=== PATIENT | female | born 1995 | race Caucasian/White ===

== ENCOUNTER 2017-06-05 13:46 | Observation (INO) | payer OTHER ==
[~2017-06-05 13:46] MED LIST: NORE1TAB60 PO
[2017-06-05] MEDS ORDERED: BUTA1CAP PO (14:42)
[2017-06-05] MEDS ORDERED: NAPR500 PO (14:42)
[2017-06-05] MEDS ORDERED: SODIUM CHLOR 0.9% 1000 ML INJ 1,000 ML IV ONE (15:00)
[2017-06-05] MEDS ORDERED: SODIUM CHLORIDE 0.9% FLUSH 10 ML FLUSH IVF PRN (15:00)
[2017-06-05] MEDS ORDERED: ONDANSETRON HCL 4 MG/2 ML VIAL IV PUSH ONE (15:00)
--- NOTE | 2017-06-05 15:01 | PD ---
HPI Chief Complaint: OD/ Ingestion Time Seen by Provider: 14:58 Travel History International Travel<30 days: No Contact w/Intl Traveler<30days: No Traveled to known affect area: No History of Present Illness HPI 22-year-old female with history of migraine headaches, presents to the ER today because she states that she had taken 4 tablets of Naprosyn at 12:30 and then took 4 tablets of Fioricet and 1:30, started becoming nauseous and started vomiting and became lightheaded. She states that at that point she decided to come in. She says her headache is actually improved. She denies any fevers, blood in the vomitus, and denies any other issues. Modifying Factors: None Associated Signs & Symptoms: Accidental overdose of Fioricet and Naprosyn Risk Factors: None PFSH Past Medical History Medical History: Denies Significant Hx ADHD: Yes (ADHD,BIPOLAR,ODD,SCHIZOPHRENIC "when I was a kid") Asthma: Yes Bipolar Disorder: Yes ("when I was a kid") Depression: Yes ("when I was a kid") Cancer: No Cardiovascular Problems: No Diabetes: No Diminished Hearing: No Psychiatric: Yes (ADHD,BIPOLAR,ODD,SCHIZOPHRENIC "when I was a kid") Immunizations Current: Yes Migraines: Yes Seizures: No Thyroid Disease: No Ulcer: No Influenza Vaccination: No ?: Not LMP: april 22 2017 Menopausal: No : 0 Miscarriage: 1 Past Surgical History Surgical History: No Previous Surgery Appendectomy: No Cholecystectomy: No Other Surgery: Yes (TONSILS AND ADNOIDS) Social History Alcohol Use: Yes (social drinker, last use 2 weeks ago) Tobacco Use: No (NOW AND THEN) Substance Use: Yes (CIGARETTES AND POT) Allergies-Medications (Allergen,Severity, Reaction): Coded Allergies: lamotrigine (Unverified Allergy, Severe, Hives, 06/05/17) penicillin G (Unverified Allergy, Severe, 06/05/17) levofloxacin (Unverified Allergy, Intermediate, 06/05/17) Reported Meds & Prescriptions Reported Meds & Active Scripts Active Reported Naprosyn (Naproxen) 500 Mg Tab 500 Mg PO BID Fioricet (Oirfdmamps-Xdhsefbvbelcx-Mecdotcg) 50-300-40 Mg Cap 1 Cap PO Q4H PRN Review of Systems Except as stated in HPI: all other systems reviewed are Neg Physical Exam Narrative GENERAL: Well-developed young white female patient currently in mild distress. Awake, alert, oriented 3. SKIN: Focused skin assessment warm/dry. HEAD: Atraumatic. Normocephalic. EYES: Pupils equal and round. No scleral icterus. No injection or drainage. ENT: No nasal bleeding or discharge. Mucous membranes pink and moist. NECK: Trachea midline. No JVD. CARDIOVASCULAR: Regular rate and rhythm. No murmur appreciated. RESPIRATORY: No accessory muscle use. Clear to auscultation. Breath sounds equal bilaterally. GASTROINTESTINAL: Abdomen soft, non-tender, nondistended. Hepatic and splenic margins not palpable. MUSCULOSKELETAL: No obvious deformities. No clubbing. No cyanosis. No edema. NEUROLOGICAL: Awake and alert. No obvious cranial nerve deficits. Motor grossly within normal limits. Normal speech. PSYCHIATRIC: Appropriate mood and affect; insight and judgment normal. Data Data Last Documented VS Vital Signs Date Time Temp Pulse Resp B/P (MAP) Pulse Ox O2 Delivery O2 Flow Rate FiO2 06/05/17 17:19 66 18 113/44 (67) 99 Room Air Orders Orders Complete Blood Count With Diff (06/05/17 14:48) Comprehensive Metabolic Panel (06/05/17 14:48) Iv Access Insert/Monitor (06/05/17 14:48) Ecg Monitoring (06/05/17 14:48) Oximetry (06/05/17 14:48) Sodium Chloride 0.9% Flush (Ns Flush) (06/05/17 15:00) Call Poison Control (06/05/17 14:48) Drug Screen, Random Urine (06/05/17 14:48) Alcohol (Ethanol) (06/05/17 14:48) Salicylates (Aspirin) (06/05/17 14:48) Tylenol (Acetaminophen) (06/05/17 14:48) Sodium Chlor 0.9% 1000 Ml Inj (Ns 1000 M (06/05/17 15:00) Ondansetron Inj (Zofran Inj) (06/05/17 15:00) Labs Laboratory Tests Test 06/05/17 15:20 06/05/17 15:25 Urine Opiates Screen NEG Urine Barbiturates Screen POS Urine Amphetamines Screen NEG Urine Benzodiazepines Screen NEG Urine Cocaine Screen NEG Urine Cannabinoids Screen POS White Blood Count 10.6 TH/MM3 Red Blood Count 4.78 MIL/MM3 Hemoglobin 14.0 GM/DL Hematocrit 41.1 % Mean Corpuscular Volume 86.0 FL Mean Corpuscular Hemoglobin 29.3 PG Mean Corpuscular Hemoglobin Concent 34.1 % Red Cell Distribution Width 12.8 % Platelet Count 287 TH/MM3 Mean Platelet Volume 8.9 FL Neutrophils (%) (Auto) 66.0 % Lymphocytes (%) (Auto) 23.6 % Monocytes (%) (Auto) 7.8 % Eosinophils (%) (Auto) 0.7 % Basophils (%) (Auto) 1.9 % Neutrophils # (Auto) 7.0 TH/MM3 Lymphocytes # (Auto) 2.5 TH/MM3 Monocytes # (Auto) 0.8 TH/MM3 Eosinophils # (Auto) 0.1 TH/MM3 Basophils # (Auto) 0.2 TH/MM3 CBC Comment DIFF FINAL Differential Comment Blood Urea Nitrogen 13 MG/DL Creatinine 0.80 MG/DL Random Glucose 104 MG/DL Total Protein 7.5 GM/DL Albumin 4.4 GM/DL Calcium Level 9.1 MG/DL Alkaline Phosphatase 75 U/L Aspartate Amino Transf (AST/SGOT) 21 U/L Alanine Aminotransferase (ALT/SGPT) 21 U/L Total Bilirubin 1.3 MG/DL Sodium Level 139 MEQ/L Potassium Level 3.7 MEQ/L Chloride Level 108 MEQ/L Carbon Dioxide Level 25.1 MEQ/L Anion Gap 6 MEQ/L Estimat Glomerular Filtration Rate 91 ML/MIN Salicylates Level 2.0 MG/DL Acetaminophen Level 6.0 MCG/ML Ethyl Alcohol Level LESS THAN 6 MG/DL MDM Medical Decision Making Medical Screen Exam Complete: Yes Emergency Medical Condition: Yes Medical Record Reviewed: Yes Interpretation(s) EKG shows NSR, no ST elevation or depression, and no arrhythmias. No significant T-wave inversions. Laboratory Tests Test 06/05/17 15:20 06/05/17 15:25 Urine Barbiturates Screen POS (NEG) Urine Cannabinoids Screen POS (NEG) Total Bilirubin 1.3 MG/DL (0.2-1.0) Chloride Level 108 MEQ/L (98-107) Salicylates Level 2.0 MG/DL (2.8-20.0) Acetaminophen Level 6.0 MCG/ML (10.0-30.0) Ethyl Alcohol Level LESS THAN 6 MG/DL (0-5) Differential Diagnosis Accidental overdose of medications/rule out coingestions Narrative Course Vital signs are stable in the ER. Patient is awake and oriented. Her lab work did not show significant amount of coingestions and calculated dose of Tylenol is under the overdose limited. Case had been discussed with poison control and they had suggested observation in the ER and patient was observed in the ER for several hours. She is feeling improved on reevaluation at 5:45 PM. And at this point, my plan would be to release the patient with follow-up to primary care physician. She should avoid taking prescribed medications be on prescribed doses. Return for any worsening in symptoms as needed. The plan has discussed with her and she states understanding. Diagnosis Primary Impression: Accidental overdose Disposition: 01 DISCHARGE HOME Condition: Stable Cody Dwyer MD Jun 05, 2017 15:01
[2017-06-05 15:40] VITALS: O2SAT 98
[2017-06-05 15:47] VITALS: BP 109/49; PULSE 66; RESP 18; O2SAT 98
[2017-06-05 15:53] LABS: BASOPHIL # 0.2 TH/MM3 (0-0.2); BASOPHIL % 1.9 % (0.0-2.0); CHLORIDE 108 MEQ/L (98-107); EOSINOPHIL # 0.1 TH/MM3 (0-0.4); EOSINOPHIL % 0.7 % (0.0-4.0); HEMATOCRIT 41.1 % (35.0-46.0); HEMO FLAGS DIFF FINAL; LYMPH % 23.6 % (9.0-44.0); LYMPHOCYTE # 2.5 TH/MM3 (1.0-4.8); MEAN CORPUSCULAR HEMOGLOBIN 29.3 PG (27.0-34.0); MEAN CORPUSCULAR HGB CONC 34.1 % (32.0-36.0); MONO % 7.8 % (0.0-8.0); PLATELET COUNT 287 TH/MM3 (150-450); POTASSIUM 3.7 MEQ/L (3.5-5.1); RED BLOOD COUNT 4.78 MIL/MM3 (4.00-5.30); RED CELL DISTRIBUTION WIDTH 12.8 % (11.6-17.2); SODIUM (NA) 139 MEQ/L (136-145); WHITE BLOOD COUNT 10.6 TH/MM3 (4.0-11.0)
[2017-06-05 15:58] LABS: ANION GAP 6 MEQ/L (5-15); BICARBONATE 25.1 MEQ/L (21.0-32.0); BLOOD UREA NITROGEN 13 MG/DL (7-18)
[2017-06-05 16:01] LABS: ALT (GPT) 21 U/L (10-53); AST (GOT) 21 U/L (15-37); GLOMERULAR FILTRATION RATE 91 ML/MIN (>89)
[2017-06-05 16:02] LABS: TOTAL BILIRUBIN ADULT 1.3 MG/DL (0.2-1.0)
[2017-06-05 16:03] LABS: ALKALINE PHOSPHATASE 75 U/L (45-117)
[2017-06-05 16:45] LABS: ALCOHOL LESS THAN 6 MG/DL (0-5)
[2017-06-05 17:19] VITALS: BP 113/44; PULSE 66; RESP 18; O2SAT 99
[2017-06-05] MEDS ORDERED: NALOXONE HCL 0.4 MG/ML AMP IV PRN (18:15)
[2017-06-05] MEDS ORDERED: SODIUM CHLORIDE 0.9% FLUSH 10 ML FLUSH IV FLUSH PRN (18:15)
[2017-06-05 18:45] VITALS: BP 122/66
[2017-06-05 20:27] VITALS: BP 102/58; PULSE 63; RESP 16; TEMP 96.9; O2SAT 96
[2017-06-05] MEDS: SODIUM CHLOR 0.9% 1000 ML INJ 1,000 ML IV SCH (20:30)
[2017-06-05] MEDS: SODIUM CHLORIDE 0.9% FLUSH 10 ML FLUSH IV FLUSH SCH (20:32)
[2017-06-05] MEDS: PANTOPRAZOLE SODIUM 40 MG VIAL IV PUSH SCH (20:32)
[2017-06-05] MEDS: MORPHINE SULFATE 4 MG/ML INJ IV PRN (22:12)
[2017-06-05] MEDS: ONDANSETRON HCL 4 MG/2 ML VIAL IVP PRN (22:12)
[2017-06-06 00:11] VITALS: BP 99/54; PULSE 60; RESP 18; TEMP 97; O2SAT 99
[2017-06-06] MEDS: MORPHINE SULFATE 4 MG/ML INJ IV PRN ×2 (03:05→21:42)
[2017-06-06 04:29] VITALS: RESP 20
[2017-06-06] MEDS: SODIUM CHLOR 0.9% 1000 ML INJ 1,000 ML IV SCH ×3 (04:45→22:54)
[2017-06-06 05:33] LABS: CHLORIDE 112 MEQ/L (98-107); POTASSIUM 4.1 MEQ/L (3.5-5.1); SODIUM (NA) 144 MEQ/L (136-145)
[2017-06-06 05:52] LABS: ALKALINE PHOSPHATASE 62 U/L (45-117); ALT (GPT) 18 U/L (10-53); ANION GAP 6 MEQ/L (5-15); AST (GOT) 15 U/L (15-37); BICARBONATE 26.1 MEQ/L (21.0-32.0); BLOOD UREA NITROGEN 11 MG/DL (7-18); GLOMERULAR FILTRATION RATE 99 ML/MIN (>89); TOTAL BILIRUBIN ADULT 0.7 MG/DL (0.2-1.0)
[2017-06-06 08:00] VITALS: BP 92/52; PULSE 63; RESP 20; TEMP 98.4; O2SAT 100
[2017-06-06] MEDS: SENNOSIDES 8.6 MG TAB PO PRN (08:34)
--- NOTE | 2017-06-06 08:39 | HHI.HP ---
[facility] Primary [facility] Physician No Primary Care Physician Admission Diagnosis accidental overdose Diagnoses: Travel History International Travel<30 Days: No Contact w/Intl Traveler <30 Da: No Traveled to Known Affected Are: No History of Present Illness this is a 22-year-old female with past medical history of migraines who yesterday started to develop a migraine and so she took for naproxen and for Fioricet. She then started to feel nauseated and vomited as well as was dizzy so she presented to the ER. In the ER her Tylenol level was 6. Urine drug screen was positive for marijuana. As she continued to be symptomatic and dizzy, poison control was contacted who recommended that she be observed until her symptoms resolved. This morning the patient is still feeling somewhat dizzy although this is improved. She states that she vomited a small amount around 6 AM. Her headache has resolved. The patient states that she is having mild epigastric abdominal pain. The patient does not feel ready to go home. The patient denied intentional overdose. Review of Systems Constitutional: DENIES: Fatigue, Fever Eyes: DENIES: Blurred vision, Diplopia Ears, nose, mouth, throat: DENIES: Tinnitus, Hearing loss Respiratory: DENIES: Cough, Shortness of breath Cardiovascular: DENIES: Chest pain, Syncope Gastrointestinal: COMPLAINS OF: Nausea, Vomiting, DENIES: Abdominal pain, Bloody stools Genitourinary: DENIES: Urgency, Dysuria Musculoskeletal: DENIES: Joint pain, Muscle aches Neurologic: DENIES: Abnormal gait, Headache, Localized weakness Psychiatric: DENIES: Anxiety, Confusion Past Family Social History Past Medical History Migraines Reported Medications Allergies Coded Allergies Type Severity Reaction Last Updated Verified lamotrigine Allergy Severe Hives 06/05/17 No penicillin G Allergy Severe 06/05/17 No levofloxacin Allergy Intermediate 06/05/17 No Active Scripts Medications Dose Route/Sig Max Daily Dose Days Date Category Naprosyn (Naproxen) 500 Mg Tab 500 Mg PO BID 06/05/17 Reported Fioricet (Hvjkzgsclg-Oqytbnglocqvj-Rrsulkys) 50-300-40 Mg Cap 1 Cap PO Q4H PRN 06/05/17 Reported Allergies: Coded Allergies: lamotrigine (Unverified Allergy, Severe, Hives, 06/05/17) penicillin G (Unverified Allergy, Severe, 06/05/17) levofloxacin (Unverified Allergy, Intermediate, 06/05/17) Family History Her sister also suffers from migraines Social History No tobacco use but she does endorse marijuana use. No other illicit drug use. Physical Exam Vital Signs Vital Signs Date Time Temp Pulse Resp B/P (MAP) Pulse Ox O2 Delivery O2 Flow Rate FiO2 06/06/17 08:00 98.4 63 20 92/52 (65) 100 06/06/17 04:29 20 06/06/17 00:11 97.0 60 18 99/54 (69) 99 06/05/17 20:27 96.9 63 16 102/58 (73) 96 06/05/17 18:45 74 18 122/66 (84) 99 06/05/17 17:19 66 18 113/44 (67) 99 Room Air 06/05/17 15:47 66 18 109/49 (69) 98 06/05/17 15:40 98 Room Air Physical Exam GENERAL: Well-nourished, well-developed pleasant female patient. SKIN: Warm and dry. HEAD: Normocephalic. EYES: No scleral icterus. No injection or drainage. NECK: Supple, trachea midline. No JVD or lymphadenopathy. CARDIOVASCULAR: Regular rate and rhythm without murmurs, gallops, or rubs. RESPIRATORY: Breath sounds equal bilaterally. No accessory muscle use. GASTROINTESTINAL: Abdomen soft, non-tender, nondistended. EXTREMITIES: No cyanosis, or edema. NEUROLOGICAL: Awake, alert, and oriented x 3. Non-focal. Laboratory Laboratory Tests Test 06/05/17 15:20 06/05/17 15:25 06/06/17 05:00 Urine Opiates Screen NEG Urine Barbiturates Screen POS Urine Amphetamines Screen NEG Urine Benzodiazepines Screen NEG Urine Cocaine Screen NEG Urine Cannabinoids Screen POS White Blood Count 10.6 Red Blood Count 4.78 Hemoglobin 14.0 Hematocrit 41.1 Mean Corpuscular Volume 86.0 Mean Corpuscular Hemoglobin 29.3 Mean Corpuscular Hemoglobin Concent 34.1 Red Cell Distribution Width 12.8 Platelet Count 287 Mean Platelet Volume 8.9 Neutrophils (%) (Auto) 66.0 Lymphocytes (%) (Auto) 23.6 Monocytes (%) (Auto) 7.8 Eosinophils (%) (Auto) 0.7 Basophils (%) (Auto) 1.9 Neutrophils # (Auto) 7.0 Lymphocytes # (Auto) 2.5 Monocytes # (Auto) 0.8 Eosinophils # (Auto) 0.1 Basophils # (Auto) 0.2 CBC Comment DIFF FINAL Differential Comment Blood Urea Nitrogen 13 11 Creatinine 0.80 0.74 Random Glucose 104 96 Total Protein 7.5 6.3 Albumin 4.4 3.3 Calcium Level 9.1 7.9 Alkaline Phosphatase 75 62 Aspartate Amino Transf (AST/SGOT) 21 15 Alanine Aminotransferase (ALT/SGPT) 21 18 Total Bilirubin 1.3 0.7 Sodium Level 139 144 Potassium Level 3.7 4.1 Chloride Level 108 112 Carbon Dioxide Level 25.1 26.1 Anion Gap 6 6 Estimat Glomerular Filtration Rate 91 99 Salicylates Level 2.0 Acetaminophen Level 6.0 Ethyl Alcohol Level LESS THAN 6 Result Diagram: 06/05/17 1525 06/06/17 0500 Caprini VTE Risk Assessment Caprini VTE Risk Assessment: No/Low Risk (score <= 1) Caprini Risk Assessment Model Point Value = 1 Point Value = 2 Point Value = 3 Point Value = 5 Age 41-60 Minor surgery BMI > 25 kg/m2 Swollen legs Varicose veins or History of unexplained or recurrent spontaneous Oral contraceptives or hormone replacement Sepsis (< 1 month) Serious lung disease, including pneumonia (< 1 month) Abnormal pulmonary function Acute myocardial infarction Congestive heart failure (< 1 month) History of inflammatory bowel disease Medical patient at bed rest Age 61-74 Arthroscopic surgery Major open surgery (> 45 min) Laparoscopic surgery (> 45 min) Malignancy Confined to bed (> 72 hours) Immobilizing plaster cast Central venous access Age >= 75 History of VTE Family history of VTE Factor V Leiden Prothrombin [id number] Lupus anticoagulant Anticardiolipin antibodies Elevated serum homocysteine Heparin-induced thrombocytopenia Other congenital or acquired thrombophilia Stroke (< 1 month) Elective arthroplasty Hip, pelvis, or leg fracture Acute spinal cord injury (< 1 month) Prophylaxis Regimen Total Risk Factor Score Risk Level Prophylaxis Regimen 0-1 Low Early ambulation 2 Moderate Order ONE of the following: *Sequential Compression Device (SCD) *Heparin 5000 units SQ BID 3-4 Higher Order ONE of the following medications: *Heparin 5000 units SQ TID *Enoxaparin/Lovenox 40 mg SQ daily (WT < 150 kg, CrCl > 30 mL/min) *Enoxaparin/Lovenox 30 mg SQ daily (WT < 150 kg, CrCl > 10-29 mL/min) *Enoxaparin/Lovenox 30 mg SQ BID (WT < 150 kg, CrCl > 30 mL/min) AND/OR *Sequential Compression Device (SCD) 5 or more Highest Order ONE of the following medications: *Heparin 5000 units SQ TID (Preferred with Epidurals) *Enoxaparin/Lovenox 40 mg SQ daily (WT < 150 kg, CrCl > 30 mL/min) *Enoxaparin/Lovenox 30 mg SQ daily (WT < 150 kg, CrCl > 10-29 mL/min) *Enoxaparin/Lovenox 30 mg SQ BID (WT < 150 kg, CrCl > 30 mL/min) AND *Sequential Compression Device (SCD) Assessment and Plan Problem List: (1) Accidental overdose ICD Code: T50.901A - Poisoning by unspecified drugs, medicaments and biological substances, accidental (unintentional), initial encounter Status: Acute Assessment and Plan -Accidental overdose with for naproxen and for Fioricet. The patient is mildly symptomatic with some dizziness nausea. We will continue to observe her and she can be discharged home when symptoms are improved. Poison control was contacted and the ER. Will continue gentle IV fluids, Protonix, Zofran as needed. -Migraines. Migraine has resolved. Patient was counseled on appropriate use of medications. -DVT prophylaxis with SCDs. Antonia Barajas MD Jun 06, 2017 08:39
[2017-06-06] MEDS: SODIUM CHLORIDE 0.9% FLUSH 10 ML FLUSH IV FLUSH SCH ×2 (09:00→20:05)
[2017-06-06] MEDS: ONDANSETRON HCL 4 MG/2 ML VIAL IVP PRN (10:22)
[2017-06-06 12:00] VITALS: BP 80/46; PULSE 63; RESP 20; TEMP 98; O2SAT 99
[2017-06-06 16:00] VITALS: BP 133/68; PULSE 71; RESP 20; TEMP 97.6; O2SAT 100
[2017-06-06 20:00] VITALS: BP 118/62; PULSE 74; RESP 16; TEMP 97.3; O2SAT 98
[2017-06-06] MEDS: PANTOPRAZOLE SODIUM 40 MG VIAL IV PUSH SCH (20:04)
[2017-06-06 20:27] LABS: BETA HCG QUANT LESS THAN 1 MIU/ML (0-5)
[2017-06-07] VITALS: BP 108/62; PULSE 57; RESP 18; TEMP 97.7; O2SAT 99
[2017-06-07] MEDS: MORPHINE SULFATE 4 MG/ML INJ IV PRN (07:30)
[2017-06-07] MEDS: ONDANSETRON HCL 4 MG/2 ML VIAL IVP PRN (07:31)
[2017-06-07 08:00] VITALS: BP 121/68; PULSE 66; RESP 18; TEMP 97.3; O2SAT 99
[2017-06-07] MEDS: SODIUM CHLORIDE 0.9% FLUSH 10 ML FLUSH IV FLUSH SCH (08:40)
--- NOTE | 2017-06-07 08:40 | HHI.PR ---
Subjective Remarks Patient states she had an episode of epigastric pain this morning followed by emesis of approximately 150 cc of clear fluid which she shows me in the trash can. She received morphine and Zofran, she is eating 100% of her breakfast. She states she feels better and would like to go home this afternoon. No further dizziness. No headache. Objective Vitals Vital Signs Date Time Temp Pulse Resp B/P (MAP) Pulse Ox O2 Delivery O2 Flow Rate FiO2 06/07/17 08:00 97.3 66 18 121/68 (85) 99 06/07/17 00:00 97.7 57 18 108/62 (77) 99 06/06/17 20:00 97.3 74 16 118/62 (80) 98 06/06/17 16:00 97.6 71 20 133/68 (89) 100 06/06/17 12:00 98.0 63 20 80/46 (57) 99 I/O 06/06/17 06/06/17 06/06/17 06/07/17 06/07/17 06/07/17 06:59 14:59 22:59 06:59 14:59 22:59 Intake Total 1208 ml 1300 ml 1000 ml 1040 ml Balance 1208 ml 1300 ml 1000 ml 1040 ml Intake Oral 120 ml 900 ml 240 ml IV Total 1088 ml 400 ml 1000 ml 800 ml # Voids 1 5 3 # Bowel Movements 0 Result Diagram: 06/05/17 1525 06/06/17 0500 Objective Remarks GENERAL: Well-nourished, well-developed pleasant young adult female patient in no apparent distress. SKIN: Warm and dry. HEAD: Normocephalic. EYES: No scleral icterus. No injection or drainage. NECK: Supple, trachea midline. No JVD or lymphadenopathy. CARDIOVASCULAR: Regular rate and rhythm without murmurs, gallops, or rubs. RESPIRATORY: Breath sounds equal bilaterally. No accessory muscle use. GASTROINTESTINAL: Abdomen soft, non-tender, nondistended. EXTREMITIES: No cyanosis, or edema. NEUROLOGICAL: Awake, alert, and oriented x 3. Non-focal. A/P Problem List: (1) Accidental overdose ICD Code: T50.901A - Poisoning by unspecified drugs, medicaments and biological substances, accidental (unintentional), initial encounter Status: Acute Assessment and Plan -Accidental overdose with 4 naproxen and 4 Fioricet. The patient was mildly symptomatic with some dizziness nausea. Poison control was contacted by the ER-patient was recommended to be observed until symptoms improved. Symptoms are now improved and she would like to go home this afternoon. She did have a mild episode of emesis this morning upon awakening but has tolerated breakfast. She may be having some nausea as a reaction to morphine. We will discontinue the morphine. If she does well with lunch she may be discharged home. -Migraines. Migraine has resolved. Patient was counseled on appropriate use of medications. -DVT prophylaxis with SCDs. Antonia Barajas MD Jun 07, 2017 08:40
[2017-06-07] MEDS ORDERED: PROT40TA PO (08:42)
[2017-06-07] MEDS: SENNOSIDES 8.6 MG TAB PO PRN (11:53)
[2017-06-07 12:00] VITALS: BP 143/70; PULSE 88; RESP 18; TEMP 97; O2SAT 98
[2017-06-07 16:00] VITALS: BP 105/54; PULSE 71; RESP 18; TEMP 97.1; O2SAT 96
--- NOTE | 2017-06-07 20:29 | PD.PSY.CON ---
Provisional Diagnosis Admission Date Jun 05, 2017 at 18:15 [place]. Substance induced mood disorder, Cannabis and hypnotic-sedative use disorder, Hx of ODD, conduct disorder, Bipolar, Personality disorder History of Present Illness Service Psychiatry Consult Requested By Reason for Consult OD Primary Care Physician No Primary Care Physician HPI The patient is a 22-year-old woman, domiciled with boyfriend, employed , with PPHx of Conduct disorder, ODD, Bipolar, cannabis use disorder, Personality disorder, known for service, % previous hospitalizations, last in 2011 in [place], previous SAs, Self cutting behavior, PPHx of migraines who yesterday started to develop a migraine and so she took allegedly 4 to 6 naproxen and for Fioricet. She then started to feel nauseated and vomited as well as was dizzy so she presented to the ER. In the ER her Tylenol level was 6. Urine drug screen was positive for marijuana. Consulted to psychiatric to asses potential OD with suicidal intention due to PPHx. on evaluation patient is oppositional and irritable, upset of being consulted to psychiatry. She denies OD with suicidal intentions and admits misusing Fioricet after confrontation. She denies depression, anxiety, jamshid, psychosis, SI and HI. Past Family Social History Coded Allergies: lamotrigine (Unverified Allergy, Severe, Hives, 06/05/17) penicillin G (Unverified Allergy, Severe, 06/05/17) levofloxacin (Unverified Allergy, Intermediate, 06/05/17) Active Scripts Pantoprazole (Protonix) 40 Mg Tab, 40 MG PO DAILY for Reflux, #3014 TAB 0 Refills Prov:Antonia Barajas MD 06/07/17 Reported Medications Oltvotvscn-Vhqlgkejconnj-Dayngbmw (Fioricet) 50-300-40 Mg Cap, 1 CAP PO Q4H Y for HEADACHE, CAP 0 Refills 06/05/17 Discontinued Reported Medications Naproxen (Naprosyn) 500 Mg Tab, 500 MG PO BID, #60 TAB 0 Refills 06/05/17 Discontinued Scripts Norethindrone-Ethinyl Estradiol (Loestrin 11/05) 1-20 Mg-Mcg Tab, 1 TAB PO DAILY , #3 PACK 3 Refills Prov:Arley Green MD 6/14/17 Physical Exam Vital Signs Vital Signs Date Time Temp Pulse Resp B/P (MAP) Pulse Ox O2 Delivery O2 Flow Rate FiO2 06/07/17 16:00 97.1 71 18 105/54 (71) 96 06/05/17 17:19 Room Air I/O 06/07/17 06/07/17 06/08/17 08:00 16:00 00:00 Intake Total 1040 ml 630 ml Balance 1040 ml 630 ml Mental Status Examination Appearance overweigh , age appearing, poorly cooperative Speech: Unremarkable Orientation: x3 Memory: Unremarkable Thought Process: Logical Hallucination Type: None Attention and Concentration: Good Suicidal Ideation: No Previous Suicide Attempts: No Homicidal Ideation: No Previous Homicide Attempts: No Judgment: WNL Affect: Good, Irritable Mood: Angry Motor Activity: Normal gait Assessment & Plan Problem List: (1) Substance induced mood disorder ICD Codes: F19.94 - Other psychoactive substance use, unspecified with psychoactive substance-induced mood disorder Assessment & Plan: Patient does not present any acute, significant or very concerning neuropsychiatric symptoms that requires immediate psychiatric symptoms. Recent accidental OD is more related to potential medication abuse and poor impulse control than to suicidal intentions. Several Cluster B traits observed. No admission in psychiatry indicated. Assessment & Plan Estimated LOS: Tray Caraballo MD Jun 07, 2017 20:28
== END 2017-06-07 16:59 | disposition left against medical advice (07) ==
LOC: PHED 13:46 → PHEDA 18:15 → PH3B 18:49
PROVIDERS: ADMIT Internal Medicine; ATTEND Internal Medicine
DX: T50.901A Poisoning by unspecified drugs, medicaments and biological substances, accidental (unintentional), initial encounter (principal); G43.909 Migraine, unspecified, not intractable, without status migrainosus; F12.90 Cannabis use, unspecified, uncomplicated
CPT/HCPCS: 80053; 80307; 84702; 85025; 96361; 96374; 96375; 96376; 99285; C9113; G0378; J2270; J2405; J7030

== ENCOUNTER 2017-11-17 22:15 | Emergency (ER) | payer OTHER ==
[~2017-11-17] VITALS: Ht 170.2 cm; Wt 110.0 kg
[~2017-11-17 22:15] MED LIST changes: +BUTA1CAP PO; -NORE1TAB60 PO; +PROT40TA PO; +SPRI28TA PO
[2017-11-17 22:17] VITALS: BP 149/93; PULSE 94; RESP 16; TEMP 98.3; O2SAT 96
[2017-11-18] MEDS ORDERED: IBUP1TAB7 PO (00:20)
[2017-11-18] MEDS ORDERED: CYCL10TA PO (00:20)
--- NOTE | 2017-11-18 00:21 | PD ---
HPI Chief Complaint: Injury Time Seen by Provider: 00:03 Travel History International Travel<30 days: No Contact w/Intl Traveler<30days: No Traveled to known affect area: No History of Present Illness HPI Patient is a 22 -year-old female presenting to the emergency department for evaluation of left shoulder pain. Patient states that a mirror fell on her yesterday at a hotel. She states that she has an abrasion, and it hurts to raise her arm. She denies any numbness, tingling, weakness. She denied any headache. Patient has not taken any medication to alleviate the pain. There are no alleviating factors. Pain is exacerbated with movement. Symptom onset was sudden. PFSH Past Medical History ADHD: Yes (ADHD,BIPOLAR,ODD,SCHIZOPHRENIC "when I was a kid") Asthma: Yes Bipolar Disorder: Yes ("when I was a kid") Anxiety: Yes (AT TIMES) Depression: Yes ("when I was a kid") Cancer: No Cardiovascular Problems: No Diabetes: No Diminished Hearing: No Endocrine: No Genitourinary: No Immune Disorder: No Neurologic: No Psychiatric: Yes (ADHD,BIPOLAR,ODD,SCHIZOPHRENIC "when I was a kid") Reproductive: No Respiratory: Yes (asthma) Immunizations Current: Yes Migraines: Yes Seizures: No Thyroid Disease: No Ulcer: No ?: Unknown LMP: 2 months ago Menopausal: No : 0 Miscarriage: 1 Past Surgical History Appendectomy: No Cholecystectomy: No Other Surgery: Yes (TONSILS AND ADNOIDS) Social History Alcohol Use: Yes (social drinker, last use 2 weeks ago) Tobacco Use: No (NOW AND THEN) Substance Use: Yes (POT) Allergies-Medications (Allergen,Severity, Reaction): Coded Allergies: lamotrigine (Unverified Allergy, Severe, Hives, 11/18/17) penicillin G (Unverified Allergy, Severe, 11/18/17) levofloxacin (Unverified Allergy, Intermediate, 11/18/17) Reported Meds & Prescriptions Reported Meds & Active Scripts Active Sprintec 28 (Norgestimate-Ethinyl Estradiol) 0.25-35 mg-Mcg Tab 1 Tab PO DAILY Protonix (Pantoprazole Sodium) 40 Mg Tab 40 Mg PO DAILY Reported Fioricet (Fptlnegabp-Lzkdsvvfxwmmz-Ziarshuu) 50-300-40 Mg Cap 1 Cap PO Q4H PRN Review of Systems Except as stated in HPI: all other systems reviewed are Neg Musculoskeletal: Positive: Myalgias Skin: Positive Lesions Physical Exam Narrative GENERAL: Well-developed, well-nourished, alert female. Resting comfortably in no acute distress. SKIN: Warm and dry. 2cm superficial abrasion to left upper back. HEAD: Atraumatic. Normocephalic. EYES: Pupils equal and round. No scleral icterus. No injection or drainage. ENT: No nasal bleeding or discharge. Mucous membranes pink and moist. NECK: Trachea midline. No JVD. CARDIOVASCULAR: Regular rate and rhythm. RESPIRATORY: No accessory muscle use. Clear to auscultation. Breath sounds equal bilaterally. GASTROINTESTINAL: Abdomen soft, non-tender, nondistended. Hepatic and splenic margins not palpable. MUSCULOSKELETAL: Extremities without clubbing, cyanosis, or edema. No obvious deformities. Full ROM in left arm. NEUROLOGICAL: Awake and alert. No obvious cranial nerve deficits. Motor grossly within normal limits. Five out of 5 muscle strength in the arms and legs. Normal speech. PSYCHIATRIC: Appropriate mood and affect; insight and judgment normal. Data Data Last Documented VS Vital Signs Date Time Temp Pulse Resp B/P (MAP) Pulse Ox O2 Delivery O2 Flow Rate FiO2 11/17/17 22:17 98.3 94 16 149/93 (111) 96 Room Air [facility] Medical Decision Making Medical Screen Exam Complete: Yes Emergency Medical Condition: Yes Interpretation(s) Vital Signs Date Time Temp Pulse Resp B/P (MAP) Pulse Ox O2 Delivery O2 Flow Rate FiO2 11/17/17 22:17 98.3 94 16 149/93 (111) 96 Room Air Differential Diagnosis Sprain vs strain vs contusion vs other Narrative Course Pt is a well appearing female presenting for evaluation of left shoulder pain. Pt VSS. Exam is consistent with a muscle strain. Pt is encouraged to manage symptoms. She is encouraged to take medications as directed, continue range of motion exercises, alternate heat and ice to affected area, avoid bed rest. She was encouraged to follow-up with primary doctor if conservative management does not alleviate symptoms. She is encouraged to return to emergency department for any new or worsening symptoms. Patient stable for discharge. Diagnosis Primary Impression: Muscle strain Additional Impression: Abrasion Referrals: [facility] Primary Care Physician Patient Instructions: General Instructions, Muscle Strain (ED) Additional Instructions: Apply warm heat to the affected area, continue range of motion exercises, avoid bed rest, avoid exacerbating activities Take medications as directed Follow-up with your primary doctor Return to emergency department for any new or worsening symptoms Med/Other Pt SpecificInfo: Prescription(s) given Scripts Cyclobenzaprine (Flexeril) 10 Mg Tab 10 MG PO TID Y for MUSCLE SPASM, #21 TAB 0 Refills Prov: Gladis Centeno 11/18/17 Ibuprofen (Ibuprofen) 800 Mg Tab 800 MG PO Q6HR Y for PAIN, #40 TAB 0 Refills Prov: Gladis Centeno 11/18/17 Disposition: 01 DISCHARGE HOME Condition: Stable Gladis Centeno Nov 18, 2017 00:20
== END 2017-11-18 00:24 | disposition home or self-care (01) ==
LOC: NEPD 22:15
DX: S46.912A Strain of unspecified muscle, fascia and tendon at shoulder and upper arm level, left arm, initial encounter (principal); W20.8XXA Other cause of strike by thrown, projected or falling object, initial encounter; Y92.59 Other trade areas as the place of occurrence of the external cause; J45.909 Unspecified asthma, uncomplicated; F31.9 Bipolar disorder, unspecified; F41.9 Anxiety disorder, unspecified; F90.9 Attention-deficit hyperactivity disorder, unspecified type
CPT/HCPCS: 99283